=== PATIENT | male | born 1990 | race Two or more races ===

== ENCOUNTER 2023-10-18 05:47 | Inpatient (IN) | payer MEDICAID, OTHER ==
[~2023-10-18] VITALS: Ht 185.4 cm; Wt 94.7 kg
[2023-10-18] MEDS: SODIUM CHLORIDE 0.9% 1,000 ML IV ONE ×2 (07:06→09:53)
[2023-10-18 07:26] LABS: Chloride 104 mmol/L (98-107); Potassium 3.4 mmol/L (3.5-5.1); Sodium 139 mmol/L (136-145)
[2023-10-18 07:27] LABS: Anion Gap 10 (5-15); Carbon Dioxide 25 mmol/L (20-30)
[2023-10-18 07:28] LABS: Calcium 9.6 mg/dL (8.5-10.1)
[2023-10-18 07:32] LABS: BUN/Creatinine Ratio 8.7 (10.0-20.0); Blood Urea Nitrogen 9 mg/dL (9-23); Glucose 111 mg/dL (74-106)
[2023-10-18] MEDS: TETANUS-DIPTH-ACEL PERTUSSIS 0.5ML SYR Tdap IM ONE (07:56)
[2023-10-18] MEDS: cefTRIAXone 1GM/50ML D5W 50 ML IV ONE (08:28)
[2023-10-18 08:33] LABS: Basophils # (auto) 0.1 10 ^3/uL (0-0.2); Basophils % (auto) 0.4 % (0.0-2.0); Eosinophils # (auto) 0.1 10 ^3/uL (0-0.8); Eosinophils % (auto) 0.6 % (0.0-7.0); Hematocrit 45.7 % (41.0-53.0); Hemoglobin 15.4 g/dL (13.5-17.5); Lymphocytes # (auto) 1.3 10 ^3/uL (0.4-5.4); Lymphocytes % (auto) 11.5 % (10.0-50.0); Mean Corpuscular Hemoglobin 30.4 pg (28.0-32.0); Mean Corpuscular Hgb Conc. 33.7 g/dL (32.0-36.0); Mean Corpuscular Volume 90.4 fL (80.0-100.0); Monocytes # (auto) 0.6 10 ^3/uL (0-1.3); Neutrophils # (auto) 9.6 10 ^3/uL (1.6-8.6); Neutrophils % (auto) 82.5 % (37.0-80.0); Nucleated Red Blood Cells % 0.7 %; Red Blood Cells 5.06 10^6/uL (4.5-5.90); Red Cell Distribution Width 13.1 % (11.8-14.3); White Blood Cell 11.6 10^3/uL (4.4-10.8)
[2023-10-18 08:36] LABS: Platelet Estimate Adequate
[2023-10-18] MEDS: cefTRIAXone 1GM/50ML D5W 50 ML IV SCH (09:00)
[2023-10-18] MEDS ORDERED: HYDROcodone-ACET 5/325MG TAB PO PRN (09:30)
[2023-10-18] MEDS ORDERED: ACETAMINOPHEN 325 MG TAB PO PRN (09:30)
[2023-10-18] MEDS ORDERED: ONDANSETRON HCL 4 MG/2 ML VIAL IV PRN (09:30)
[2023-10-18] MEDS: POTASSIUM EFFERVESENT TAB 25 MEQ PO ONE (09:57)
[2023-10-18] MEDS: ENOXAPARIN SOD 40 MG/0.4 ML SYRINGE SC SCH (10:38)
[2023-10-18] MEDS: SODIUM CHLORIDE 0.9% 1,000 ML IV SCH (11:39)
[2023-10-18 16:51] LABS: Urine Bacteria None Seen /hpf (None Seen)
[2023-10-18 17:14] LABS: Urine Blood Negative /uL (Negative); Urine Clarity Turbid (Clear); Urine Color Yellow (Yellow); Urine Hyaline Cast FEW /lpf (0 - 2); Urine Mucus FEW (None Seen); Urine Protein, UAD TRACE (Negative); Urine Urobilinogen Normal (Negative); Urine WBC 16 /hpf (0 - 3)
[2023-10-18 17:22] LABS: Amphetamine Screen, Urine Pos (NEGATIVE); Barbiturate Scree,Urine Neg (NEGATIVE); Benzodiazephine Screen, Urine Neg (NEGATIVE); Cocaine Screen, Urine Neg (NEGATIVE); Opiate Scree,Urine Neg (NEGATIVE)
[2023-10-18 17:23] LABS: Cannabinoid Screen, Urine Pos (NEGATIVE); Phencyclidine Screen, Urine Neg (NEGATIVE)
[2023-10-18] MEDS ORDERED: NORPTMEDS CO (18:33)
[2023-10-18 18:34] VITALS: BP 117/71; PULSE 86; RESP 17; TEMP 98.1; O2SAT 99
[2023-10-18 20:00] VITALS: BP 125/82; PULSE 74; RESP 16; TEMP 97.3; O2SAT 100
[2023-10-18 21:00] VITALS: BP 125/82; PULSE 74; RESP 16; TEMP 97.3; O2SAT 100
[2023-10-19] VITALS (7 sets, daily range): BP systolic 98–118; BP diastolic 62–77; PULSE 67–89; RESP 14–20; TEMP 97.5–98.7; O2SAT 95–98
[2023-10-19 06:31] LABS: Basophils # (auto) 0 10 ^3/uL (0-0.2); Basophils % (auto) 0.5 % (0.0-2.0); Eosinophils # (auto) 0.1 10 ^3/uL (0-0.8); Eosinophils % (auto) 1.6 % (0.0-7.0); Hematocrit 43.5 % (41.0-53.0); Hemoglobin 14.7 g/dL (13.5-17.5); Lymphocytes # (auto) 0.8 10 ^3/uL (0.4-5.4); Lymphocytes % (auto) 12.9 % (10.0-50.0); Mean Corpuscular Hemoglobin 30.3 pg (28.0-32.0); Mean Corpuscular Hgb Conc. 33.9 g/dL (32.0-36.0); Mean Corpuscular Volume 89.6 fL (80.0-100.0); Monocytes # (auto) 0.5 10 ^3/uL (0-1.3); Monocytes % (auto) 7.1 % (0.0-12.0); Neutrophils % (auto) 77.9 % (37.0-80.0); Nucleated Red Blood Cells % 0.1 %; Red Blood Cells 4.85 10^6/uL (4.5-5.90); Red Cell Distribution Width 13.2 % (11.8-14.3); White Blood Cell 6.4 10^3/uL (4.4-10.8)
[2023-10-19 06:52] LABS: Alanine Aminotransferase 29 U/L (7-40); Alkaline Phosphatase 38 U/L (46-116); Anion Gap 8 (5-15); BUN/Creatinine Ratio 7.1 (10.0-20.0); Blood Urea Nitrogen 5 mg/dL (9-23); Calcium 9.1 mg/dL (8.7-10.4); Carbon Dioxide 23 mmol/L (20-30); Chloride 106 mmol/L (98-107); Glucose 105 mg/dL (74-106); Potassium 3.7 mmol/L (3.5-5.1); Sodium 137 mmol/L (136-145)
[2023-10-19 06:54] LABS: Albumin 3.9 g/dL (3.2-4.8); Aspartate Aminotransferase 27 U/L (13-40); Bilirubin, Total 1.1 mg/dL (0.2-1.0); Total Protein 6.7 g/dL (5.7-8.2)
[2023-10-20 04:30] VITALS: BP 131/86; PULSE 76; RESP 20; TEMP 99; O2SAT 96
[2023-10-20 08:00] VITALS: PULSE 78; RESP 17; O2SAT 96
[2023-10-20 09:00] VITALS: BP 120/78; PULSE 78; RESP 17; TEMP 98.1; O2SAT 96
[2023-10-20 13:00] VITALS: BP 118/77; PULSE 83; RESP 17; TEMP 97.8; O2SAT 97
[2023-10-20] MEDS ORDERED: AZIT-185 PO (14:26)
[2023-10-20 16:27] VITALS: BP 118/77; PULSE 83; RESP 17; TEMP 97.8; O2SAT 97
[2023-10-20 17:00] VITALS: BP 108/71; PULSE 59; RESP 17; TEMP 97.8; O2SAT 95
== END 2023-10-20 17:25 | disposition home or self-care (01) | DRG 364 ==
LOC: ER 05:47 → OVERFLOW 09:25 → WEST WING 17:29
PROVIDERS: ADMIT Nurse Practitioner Family; ATTEND Nurse Practitioner Family
PROC: 0WQ0XZZ Repair Head, External Approach (ICD-10-PCS; principal; 2023-10-18)
DX: S01.81XA Laceration without foreign body of other part of head, initial encounter (principal); S09.90XA Unspecified injury of head, initial encounter; D72.829 Elevated white blood cell count, unspecified; E87.6 Hypokalemia; W22.01XA Walked into wall, initial encounter; Y92.89 Other specified places as the place of occurrence of the external cause; Y99.9 Unspecified external cause status; Y93.55 Activity, bike riding
CPT/HCPCS: 12015; 36415; 70450; 70486; 72125; 80048; 80053; 80307; 81001; 85025; 87086; 90715; G0378

== ENCOUNTER 2023-10-20 20:59 | Emergency (ER) | payer MEDICAID ==
[~2023-10-20] VITALS: Ht 185.4 cm; Wt 93.0 kg
[~2023-10-20 20:59] MED LIST: AZIT-185 PO; NORPTMEDS CO
[2023-10-21 01:41] VITALS: BP 134/94; PULSE 114; RESP 16; TEMP 98.2; O2SAT 100
== END 2023-10-21 01:41 | disposition home or self-care (01) ==
LOC: ER 20:59
DX: F07.81 Postconcussional syndrome (principal); Z59.00 Homelessness unspecified; Z79.2 Long term (current) use of antibiotics
CPT/HCPCS: 93005